=== PATIENT | male | born 1990 | race African-American/Black ===

== ENCOUNTER 2017-05-07 19:29 | Emergency (ER) | payer OTHER ==
[~2017-05-07] VITALS: Ht 185.4 cm; Wt 63.0 kg
[2017-05-07] MEDS ORDERED: IPRATROPIUM BROMIDE (0.02%) 0.5MG/2.5ML NEB HHN STA (21:35)
[2017-05-07] MEDS ORDERED: ALBUTEROL (0.083%) 2.5MG/3ML NEB HHN STA (21:35)
[2017-05-07 22:48] LABS: HEMATOCRIT. 44.4 % (42.0-52.0); HEMOGLOBIN. 15.4 g/dL (14.0-18.0); MEAN CORPUSCULAR HEMOGLOBIN 28.1 pg (28.0-32.0); MEAN CORPUSCULAR VOLUME 81.1 fL (80.0-94.0); MEAN PLATELET VOLUME 7.7 fl (7.4-10.4); PLATELET 206 x1000/uL (130-400); RED BLOOD CELL COUNT 5.48 mill/uL (4.7-6.1)
[2017-05-07 22:49] LABS: INR 1.1; PROTHROMBIN TIME 11.7 sec (9.4-11.6)
[2017-05-07 23:01] LABS: CARBON DIOXIDE 27 mEq/L (21-32); CHLORIDE 103 mEq/L (98-107)
[2017-05-07 23:19] LABS: ATYPICAL LYMPHOCYTES 2; PLATELET ESTIMATE NORMAL
[2017-05-08] MEDS ORDERED: SODIUM CHLORIDE 0.9% 1,000 ML IV ONE (01:30)
[2017-05-08] MEDS ORDERED: ONDANSETRON HCL 4MG/2ML VIAL IV ONE (01:30)
[2017-05-08] MEDS ORDERED: ALBUTEROL 6.7GM HFA INHALER ORI ONE (02:15)
[2017-05-08 03:08] VITALS: BP 122/84
== END 2017-05-08 04:10 | disposition home or self-care (01) ==
LOC: ER 22:33
DX: J45.901 Unspecified asthma with (acute) exacerbation (principal); R11.2 Nausea with vomiting, unspecified; R03.0 Elevated blood-pressure reading, without diagnosis of hypertension; R00.0 Tachycardia, unspecified; D72.829 Elevated white blood cell count, unspecified
CPT/HCPCS: 36415; 71010; 76705; 80053; 85025; 85610; 93005; 94640; 96361; 96374; 99285; J2405; J7030; J7611; Z7610